=== PATIENT | male | born 1980 | race Caucasian/White ===

== ENCOUNTER 2018-03-10 16:38 | Emergency (ER) | payer OTHER ==
[~2018-03-10] VITALS: Ht 185.4 cm; Wt 122.5 kg
[~2018-03-10 16:38] MED LIST: ACETAMINOPHEN-1 EAC1 PO; ATENOLOL 50 MG50 M1 PO; IBUPROFEN 800800 MG PO; NORCO 5-325 TA1 EACH PO; PAXIL10 MG; PAXIL40 MG PO; XANAX 0.25 MG0.25 MG; ZORVOLEX18 MG PO
[2018-03-10] MEDS ORDERED: ZANAFLEX4 MG PO (18:04)
[2018-03-10] MEDS ORDERED: NAPROSYN500 MG PO (18:04)
[2018-03-10] MEDS ORDERED: PERCOCET PO (18:04)
[2018-03-10 18:27] VITALS: BP 138/85
== END 2018-03-10 18:28 | disposition home or self-care (01) ==
LOC: M.ERS 16:38
DX: S06.0X0A Concussion without loss of consciousness, initial encounter (principal); S39.012A Strain of muscle, fascia and tendon of lower back, initial encounter; S16.1XXA Strain of muscle, fascia and tendon at neck level, initial encounter; I10 Essential (primary) hypertension; F41.9 Anxiety disorder, unspecified; Z90.89 Acquired absence of other organs; Z88.1 Allergy status to other antibiotic agents; Z88.8 Allergy status to other drugs, medicaments and biological substances; V43.62XA Car passenger injured in collision with other type car in traffic accident, initial encounter; Y93.89 Activity, other specified; Y92.89 Other specified places as the place of occurrence of the external cause; Y99.8 Other external cause status